=== PATIENT | female | born 1950 | race Caucasian/White ===

== ENCOUNTER 2020-10-22 09:44 | Emergency (ER) | payer BC ==
[~2020-10-22 09:44] MED LIST: Ondansetron 4 MG Tab.DIS ONE
[2020-10-22] MEDS ORDERED: Ondansetron 4 MG/2 ML SDV IVPUSH ONE (11:17)
[2020-10-22] MEDS ORDERED: Sodium Chloride 0.9% 1,000 ML IV SCH (11:30)
[2020-10-22] MEDS ORDERED: Ondansetron 4 MG/2 ML SDV ONE (11:43)
--- NOTE | 2020-10-22 19:37 | ER ---
REASON FOR EMERGENCY ROOM VISIT: Nausea and diarrhea. HISTORY: This 70-year-old woman with type 2 diabetes, was on her way driving back to her home in [place], [place], when around 8:30, she developed sudden nausea followed by rather explosive watery diarrhea. She had several large diarrheal bowel movements. She had some chills and weakness along with nausea but no vomiting. She does not think she had a fever. Last night a meal that she made consisting of pizza and cake that was consumed by others and no one that she knows of has suffered any illness similar to this. She has no prior history of GI problems. No history of colitis and no history of recent antibiotic use. She has not had any abdominal pain other than cramping before bowel movements. PAST MEDICAL HISTORY: 1. Type 2 diabetes, on insulin and metformin. 2. Hyperactive bladder. 3. Hypertension. 4. Hypercholesterolemia. MEDICATIONS: Reviewed and were updated in her electronic medical record, they include the following. 1. Metformin. 2. Lisinopril. 3. Hydrochlorothiazide. 4. Benadryl. 5. Atorvastatin. 6. Metamucil p.r.n. 7. Oxybutynin. 8. Omeprazole. 9. Vitamins. 10.Mirabegron. 11.Loratadine p.r.n. 12.Levothyroxine. 13.Insulin. 14.Ibuprofen p.r.n.. 15.Fluticasone p.r.n. 16.Celexa. 17.Aspirin. ALLERGIES: NONE TO MEDICATIONS. REVIEW OF SYSTEMS: Pertinent positives and negatives as listed in the HPI. PHYSICAL EXAMINATION: GENERAL: She is a pleasant woman, who is in no acute distress. She is afebrile. VITAL SIGNS: Heart rate is 65, blood pressure 141/73, respiratory rate 18, O2 sats 96% on room air. HEENT: No scleral icterus or conjunctivitis is noted. Oropharynx is normal. NECK: Supple. No adenopathy. CHEST: Clear to auscultation with good air exchange bilaterally. CARDIAC: Regular rate without murmur. ABDOMEN: Obese, soft, and nontender. Bowel sounds are present. There is no hepatosplenomegaly or palpable mass. EXTREMITIES: Normal pulses. No edema. NEUROLOGIC: She moves all 4 extremities to command. No facial asymmetry. LABORATORY DATA: Her WBCs are elevated at 13,700. Her hemoglobin is 13.5. BMP shows her electrolytes to be normal. Her creatinine is 1.67 with a BUN of 34 and a glucose of 170. A COVID-19 swab was negative. IMPRESSION: Gastroenteritis. PLAN: We did obtain a C difficile toxin essay and that the results of that are pending along with a stool culture. She received 1 L of normal saline and 4 mg of Zofran IV. She has been in the emergency room now for 3-1/2 hours and feels much better. Her family is here to give her a ride home. I told her to stay on clear liquids today and avoid any anti- diarrheal agents. If she is not better by next week, she should be seen in followup by her primary care provider. Certainly, if she gets worse in the interim, she should call us or call her local emergency room in [facility]. All questions were answered. She understands and agrees with this plan. [place] /[id number]
== END 2020-10-22 13:15 | disposition home or self-care (01) ==
LOC: LB.ED 09:44
DX: K52.9 Noninfective gastroenteritis and colitis, unspecified (principal); D72.829 Elevated white blood cell count, unspecified; E11.9 Type 2 diabetes mellitus without complications; I10 Essential (primary) hypertension; E78.00 Pure hypercholesterolemia, unspecified; Z79.4 Long term (current) use of insulin; Z79.899 Other long term (current) drug therapy; Z79.82 Long term (current) use of aspirin
CPT/HCPCS: 36415; 80053; 81001; 85025; 87045; 87046; 87427; 87493; 96374; 99284; 99284-25; A0425; A0429; A9270-GY; J2405; J7030; U0002